=== PATIENT | female | born 1955 | race Caucasian/White ===

== ENCOUNTER 2019-03-30 09:52 | Day surgery (SDC) | payer BC ==
[2019-03-29 09:52] VITALS: BMI 48.4
== END 2019-03-30 11:15 | disposition home or self-care (01) ==
LOC: SDC/OP 09:52
PROVIDERS: ATTEND Family Medicine
DX: M75.101 Unspecified rotator cuff tear or rupture of right shoulder, not specified as traumatic (principal); Z53.09 Procedure and treatment not carried out because of other contraindication; I10 Essential (primary) hypertension; G47.30 Sleep apnea, unspecified; H40.9 Unspecified glaucoma; Z79.899 Other long term (current) drug therapy